=== PATIENT | female | born 1940 | race African-American/Black ===

== ENCOUNTER 2019-02-17 10:44 | Emergency (ER) | payer MEDICAID ==
[~2019-02-17] VITALS: Ht 165.1 cm; Wt 85.0 kg
[2019-02-17] MEDS ORDERED: IBUPROFEN 400MG TABLET PO ONE (12:15)
[2019-02-17 13:54] LABS: PROTHROMBIN TIME 10.3 sec (9.6-11.0)
[2019-02-17 13:55] LABS: BASOPHILS % 0.7 % (0.0-2.0); CHLORIDE 110 mEq/L (98-107); EOSINOPHILS % 4.1 % (0.0-5.0); HEMATOCRIT. 35.9 % (36.0-48.0); HEMOGLOBIN. 12.1 g/dL (12.0-16.0); LYMPHOCYTES % 33.4 % (20.0-50.0); MEAN CORPUSCULAR HEMOGLOBIN 31.4 pg (28.0-32.0); MEAN CORPUSCULAR VOLUME 93.5 fL (81.0-99.0); MEAN PLATELET VOLUME 10.8 fl (7.4-10.4); NEUTROPHILS % 53.8 % (40.0-76.0); PLATELET 139 x1000/uL (130-400); RED BLOOD CELL COUNT 3.84 mill/uL (4.2-5.4); RED CELL DISTRIBUTION WIDTH 13.7 % (11.6-14.6)
[2019-02-17 14:16] LABS: CLARITY URINE CLEAR (CLEAR); KETONES URINE NEGATIVE (NEGATIVE); LEUKOCYTE ESTERASE URINE TRACE (NEGATIVE); NITRITE URINE NEGATIVE (NEGATIVE); OCCULT BLOOD URINE NEGATIVE (NEGATIVE); PROTEIN URINE 1+ (NEGATIVE); SPECIFIC GRAVITY URINE 1.009 (1.005-1.030); UROBILINOGEN URINE 0.2 E.U./dL (0.2-1.0)
[2019-02-17 14:18] LABS: COLOR URINE PALE YELLOW (YELLOW)
[2019-02-17 15:00] VITALS: BP 165/80
== END 2019-02-17 15:00 | disposition home or self-care (01) ==
LOC: ER 10:44
DX: E11.40 Type 2 diabetes mellitus with diabetic neuropathy, unspecified (principal); N39.0 Urinary tract infection, site not specified; I10 Essential (primary) hypertension; R05 Cough
CPT/HCPCS: 36415; 71045; 81003; 84484; 93005; 93970; 99284